=== PATIENT | female | born 1980 | race Caucasian/White ===

== ENCOUNTER 2017-02-01 11:46 | Inpatient (IN) | payer MEDICAID ==
--- NOTE | 2017-02-01 12:25 | ER Document Report ---
HPI - HPI Pain Level: 5 - REPRODUCTIVE Reproductive: DENIES: : - DERM Skin Color: Normal Past Medical History - Social History Family History: Reviewed & Not Pertinent Patient has suicidal ideation: No Patient has homicidal ideation: No - Past Medical History Cardiac Medical History: Reports: Hx Hypertension Pulmonary Medical History: Reports: Hx COPD Renal/ Medical History: Denies: Hx Peritoneal Dialysis Past Surgical History: Reports: Hx Section, Hx Cholecystectomy, Hx Tonsillectomy - Immunizations Hx Diphtheria, Pertussis, Tetanus Vaccination: Yes Vertical Provider Document - INFECTION CONTROL TRAVEL OUTSIDE OF THE [place] IN LAST 30 DAYS: No - RESPIRATORY O2 Sat by Pulse Oximetry: 100 Course - Vital Signs Vital signs: Temp Pulse Resp BP Pulse Ox 98.5 F 93 20 150/111 H 100 02/01/17 12:14 02/01/17 12:14 02/01/17 12:14 02/01/17 12:14 02/01/17 12:14 Discharge - Discharge Condition: Stable Instructions: Ice & Elevation ([facility]), Ankle Stirrup Splint ([facility]), Sprained Ankle ([facility]), Use of Crutches ([facility]) Additional Instructions: Rest, Ice, Compression, Elevation Use sling as directed Tylenol/ibuprofen as needed Light stretches daily Strength exercises as able Moist heat and massage may help F/u with your PCP in 2-3 days for a recheck Consider consult(s) with Orthopedics/physical therapy for ongoing/worsening symptoms Return to the ED with any worsening symptoms and/or development of fever, headache, chest pain, palpitations, syncope, shortness of breath, trouble breathing, abdominal pain, n/v/d, muscle weakness/paralysis, numbness/tingling, swelling, redness, or other worsening symptoms that are concerning to you. Forms: Elevated Blood Pressure Referrals: [facility] [Provider Group] - Follow up as needed
[2017-02-01] MEDS ORDERED: ONDANSETRON 4 MG TAB.RAPDIS PO ONE (12:36)
[2017-02-01] MEDS ORDERED: KETOROLAC TROMETHAMINE 60 MG/2 ML SDV IM ONE (12:36)
[2017-02-01] MEDS ORDERED: OXYCODONE-ACETAMINOPHEN 5-325 MG TABLET PO ONE (12:36)
--- NOTE | 2017-02-01 12:46 | ER Document Report ---
ED Extremity Problem, Lower - General Chief Complaint: Ankle Injury Stated Complaint: FALL/LEFT KNEE PAIN Time Seen by Provider: 02/01/17 12:25 Mode of Arrival: Wheelchair Information source: Patient Notes: 36-year-old female presents to ED for complaint of left knee pain. She states she was changing a light bulb around 2:00 this morning while cleaning in an empty house after the people had moved out. She states she was on a little short ladder and somehow the ladder tipped over and she went down landing on her right knee. She denies any loss of consciousness neck pain back pain. She states her pain is mainly in her left knee but sometimes it radiates up the leg and down the leg. She states that she tried to wait to see if she had to get seen by a doctor but the pain persisted so she came to the emergency room. TRAVEL OUTSIDE OF THE [place] IN LAST 30 DAYS: No - HPI Patient complains to provider of: Pain, Swelling Location: Knee - Left knee Occurred: This morning Where: Indoors - Changing a light bulb and a ladder Onset/Duration: Sudden, Persistent Quality of pain: Sharp, Throbbing Severity: Severe Pain Level: 5 Recent injury: Yes Associated symptoms: Unable to bear weight Exacerbated by: Hanging down, Movement, Walking Relieved by: Nothing - Related Data Allergies/Adverse Reactions: No Known Allergies Allergy (Verified 02/01/17 15:07) Home Medications: Current Home Medications Alprazolam [Xanax 0.5 mg Tablet] 0.5 mg PO Q8A 02/01/17 [History] Dextroamphetamine/Amphetamine [Dextroamp-Amphetamin 20 mg Tab] 20 mg PO Q8 02/01 [History] Past Medical History - General Information source: Patient - Social History Smoking Status: Current Every Day Smoker Cigarette use (# per day): Yes - 3-5 cigarettes a day Chew tobacco use (# tins/day): No Smoking Education Provided: Yes - Less than 2 minutes Frequency of alcohol use: Occasional Drug Abuse: None Occupation: no Lives with: Family Family History: Arthritis, CAD, COPD, CVA, DM, Hyperlipidemia, Hypertension, Malignancy Patient has suicidal ideation: No Patient has homicidal ideation: No - Past Medical History Cardiac Medical History: Reports: Hx Hypertension Pulmonary Medical History: Reports: Hx COPD EENT Medical History: Reports: None Neurological Medical History: Reports: None Endocrine Medical History: Reports: None Renal/ Medical History: Reports: None Malignancy Medical History: Reports: None GI Medical History: Reports: None Musculoskeltal Medical History: Reports None Skin Medical History: Reports Hx MRSA Psychiatric Medical History: Reports: Hx Anxiety, Hx Attention Deficit Hyperactivity Disorder Traumatic Medical History: Reports: None Infectious Medical History: Reports: None Past Surgical History: Reports: Hx Adenoidectomy, Hx Section, Hx Cholecystectomy, Hx Tonsillectomy - Immunizations Hx Diphtheria, Pertussis, Tetanus Vaccination: Yes Review of Systems - Review of Systems Constitutional: No symptoms reported EENT: No symptoms reported Cardiovascular: No symptoms reported Respiratory: No symptoms reported Gastrointestinal: No symptoms reported Genitourinary: No symptoms reported Female Genitourinary: No symptoms reported Musculoskeletal: Joint pain - left knee, Joint swelling, Muscle pain Skin: No symptoms reported Hematologic/Lymphatic: No symptoms reported Neurological/Psychological: No symptoms reported -: Yes All other systems reviewed and negative Physical Exam - Vital signs Vitals: Temp Pulse Resp BP Pulse Ox 98.5 F 93 20 150/111 H 100 02/01/17 12:14 02/01/17 12:14 02/01/17 12:14 02/01/17 12:14 02/01/17 12:14 Interpretation: Normal - General General appearance: Appears well, Alert - HEENT Head: Normocephalic, Atraumatic Eyes: Normal Pupils: PERRL - Respiratory Respiratory status: No respiratory distress Chest status: Nontender Breath sounds: Normal Chest palpation: Normal - Cardiovascular Rhythm: Regular Heart sounds: Normal auscultation Murmur: No - Abdominal Inspection: Normal Distension: No distension Bowel sounds: Normal Tenderness: Nontender Organomegaly: No organomegaly - Back Back: Normal, Nontender - Extremities General upper extremity: Normal inspection, Nontender, Normal color, Normal ROM , Normal temperature General lower extremity: Normal color, Normal temperature Knee: Tender, Joint effusion, Pain with ROM, Tender joint line, Unable to bear weight. No: Abrasion, Deformity, Dislocation, Drawer's test instability, Ecchymosis, Instability, Laxity with valgus stress, Laxity with varus stress, Popliteal fossa tender - Neurological Neuro grossly intact: Yes Cognition: Normal Orientation: AAOx4 [place] Coma Scale Eye Opening: Spontaneous [place] Coma Scale Verbal: Oriented [place] Coma Scale Motor: Obeys Commands [place] Coma Scale Total: 15 Speech: Normal Motor strength normal: LUE, RUE, LLE, RLE Sensory: Normal - Psychological Associated symptoms: Normal affect, Normal mood - Skin Skin Temperature: Warm Skin Moisture: Dry Skin Color: Normal Course - Re-evaluation Re-evalutation: 02/01/17 21:54 At [address] ng concerning the tibial plateau fracture to the left knee. He stated yes it was a fracture to the proximal tibia and that I would need to call orthopedics as this would need to go to surgery. At 1343 I placed a call to Dr. Rodriguez with the coal conveyor operator who stated that she left a message on his phone to call me. At 1418 I had not yet received a call and I called the coal conveyor operator again. She placed me through to Dr. joseph this time and I spoke to him telling him of the tibial plateau fracture. He asked me was not displaced and I told him that it was. He states he would need a CT of the knee and that he will look at the x-ray and CT when he got where he was going as he was driving when I spoke to him. At 1537 he had not yet called me and I placed another call. I told him that the CT had read that there was a comminuted fracture going to the articular joint. He stated that he would look at the CT and call me back. I wrote orders for the blood work for admission and IV with IV fluids. At 1635 he had not called me back yet so I called again at which time he told me to admit the patient to his services and that he would write orders. He stated he could not do surgery today as it was too much swelling that she can go ahead and eat today and to be n.p.o. after midnight. Patient was admitted to Dr. Rodriguez's services. Patient was treated with Percocet and Toradol when I first examined the patient. There was ice applied to her knee. She was sent for the x-rays. When I found that her knee was fractured she was treated with morphine IV before sending her to the CAT scan. - Vital Signs Vital signs: Temp Pulse Resp BP Pulse Ox 98.2 F 101 H 16 137/93 H 100 02/01/17 17:15 02/01/17 17:15 02/01/17 17:15 02/01/17 17:15 02/01/17 12:14 - Laboratory Result Diagrams: 02/01/17 14:20 02/01/17 14:20 Laboratory results interpreted by me: 02/01/17 02/01/17 14:20 14:20 Hgb 11.2 L Hct 33.1 L RDW 14.9 H Total Protein 6.0 L - Diagnostic Test Radiology reviewed: Image reviewed, Reports reviewed Discharge - Discharge Clinical Impression: comminuted proximal tibial plateau left Disposition: ADMITTED INPATIENT Admitting Provider: Dr Rodriguez
[2017-02-01] MEDS ORDERED: MORPHINE SULFATE 10 MG/ML INJ IV ONE (14:07)
[2017-02-01] MEDS ORDERED: NORMAL SALINE 1000 ML 1,000 ML IV ONE (14:08)
[2017-02-01] MEDS ORDERED: DIPHENHYDRAMINE HCL 50 MG/ML VIAL IV ONE (14:12)
[2017-02-01] MEDS: NORMAL SALINE 1000 ML 1,000 ML IV PRN (14:20)
[2017-02-01 14:45] LABS: ABSOLUTE EOSINOPHILS # (AUTO) 0.2 10^3/uL (0.0-0.6); ABSOLUTE LYMPHOCYTES (AUTO) 2.2 10^3/uL (0.5-4.7); ABSOLUTE MONOCYTES (AUTO) 0.9 10^3/uL (0.1-1.4); ABSOLUTE NEUT (AUTO) 5.1 10^3/uL (1.7-8.2); BASOPHILS % (AUTO) 0.4 % (0-2); EOSINOPHILS % (AUTO) 2.4 % (0-6); HEMATOCRIT 33.1 % (36.0-47.0); HEMOGLOBIN 11.2 g/dL (12.0-15.5); HGB HCT DIFFERENCE 0.5; LYMPHOCYTES % (AUTO) 26.6 % (13-45); MEAN CORPUSCULAR HGB CONC 33.9 g/dL (32.0-36.0); MEAN CORPUSCULAR VOLUME 89 fl (80-97); MONOCYTES % (AUTO) 10.1 % (3-13); RED BLOOD COUNT 3.73 10^6/uL (3.72-5.28); RED CELL DISTRIBUTION WIDTH 14.9 % (11.5-14.0); SEGMENTED NEUTROPHILS % (AUTO) 60.5 % (42-78); WHITE BLOOD COUNT 8.4 10^3/uL (4.0-10.5)
--- NOTE | 2017-02-01 14:45 | RADIOLOGY REPORT (SQ) ---
EXAM DESCRIPTION: KNEE LEFT 3 VIEWS; FEMUR LEFT; TIBIA FIBULA LEFT COMPLETED DATE/TIME: 02/01/2017 1:48 pm REASON FOR STUDY: pain injury fall; Fall landed on knee states pain radiates up and do COMPARISON: None. NUMBER OF VIEWS: 7 views TECHNIQUE: AP lateral left tibia fibula, AP lateral and sunrise left knee, AP and lateral left femur . LIMITATIONS: None. FINDINGS: Comminuted fracture central posterior tibial plateau. Intra-articular bone fragments. Fi bular head and patella intact. Joint effusion. IMPRESSION: Fracture of the tibial plateau. TECHNICAL DOCUMENTATION: JOB ID: [id number] [employer]- All Rights Reserved
--- NOTE | 2017-02-01 14:45 | RADIOLOGY REPORT (SQ) ---
EXAM DESCRIPTION: KNEE LEFT 3 VIEWS; FEMUR LEFT; TIBIA FIBULA LEFT COMPLETED DATE/TIME: 02/01/2017 1:48 pm REASON FOR STUDY: pain injury fall; Fall landed on knee states pain radiates up and do COMPARISON: None. NUMBER OF VIEWS: 7 views TECHNIQUE: AP lateral left tibia fibula, AP lateral and sunrise left knee, AP and lateral left femur . LIMITATIONS: None. FINDINGS: Comminuted fracture central posterior tibial plateau. Intra-articular bone fragments. Fi bular head and patella intact. Joint effusion. IMPRESSION: Fracture of the tibial plateau. TECHNICAL DOCUMENTATION: JOB ID: [id number] [email or web address]- All Rights Reserved
--- NOTE | 2017-02-01 14:45 | RADIOLOGY REPORT (SQ) ---
EXAM DESCRIPTION: KNEE LEFT 3 VIEWS; FEMUR LEFT; TIBIA FIBULA LEFT COMPLETED DATE/TIME: 02/01/2017 1:48 pm REASON FOR STUDY: pain injury fall; Fall landed on knee states pain radiates up and do COMPARISON: None. NUMBER OF VIEWS: 7 views TECHNIQUE: AP lateral left tibia fibula, AP lateral and sunrise left knee, AP and lateral left femur . LIMITATIONS: None. FINDINGS: Comminuted fracture central posterior tibial plateau. Intra-articular bone fragments. Fi bular head and patella intact. Joint effusion. IMPRESSION: Fracture of the tibial plateau. TECHNICAL DOCUMENTATION: JOB ID: [id number] [employer]- All Rights Reserved
[2017-02-01 15:17] LABS: ALANINE AMINOTRANSFERASE 36 U/L (9-52); ALBUMIN 3.6 g/dL (3.5-5.0); ALKALINE PHOSPHATASE 87 U/L (38-126); ANION GAP 10 (5-19); ASPARTATE AMINO TRANSFERASE 21 U/L (14-36); BILIRUBIN,DIRECT 0.3 mg/dL (0.0-0.4); BILIRUBIN,TOTAL 0.3 mg/dL (0.2-1.3); BLOOD UREA NITROGEN 13 mg/dL (7-20); CARBON DIOXIDE 23 mmol/L (22-30); CHLORIDE 107 mmol/L (98-107); CREATININE RESULT 0.62 mg/dL (0.52-1.25); GLUCOSE 97 mg/dL (75-110); POTASSIUM 3.8 mmol/L (3.6-5.0); SODIUM 139.5 mmol/L (137-145)
--- NOTE | 2017-02-01 15:25 | RADIOLOGY REPORT (SQ) ---
EXAM DESCRIPTION: CT LT LOWER EXTREMITY WITHOUT COMPLETED DATE/TIME: 02/01/2017 3:06 pm REASON FOR STUDY: factured tibia Dr Rodriguez request COMPARISON: None. TECHNIQUE: Axial imaging performed through the left knee with reformatted coronal and sagittal imagi ng windowed for bone and soft tissues. Images saved to PACS. 3D IMAGING: Were 3D images as MIP, SSD, or volume rendering performed at the work station? No. All CT scanners at this facility use dose modulation, iterative reconstruction, and/or weight based d osing when appropriate to reduce radiation dose to as low as reasonably achievable (ALARA). [facility]: Dose Right [facility]: CareDose [facility]: Dose Right [facility]: Teradose 4D [facility]: [employer] LIMITATIONS: None. RADIATION DOSE: Up-to-date CT equipment and radiation dose reduction techniques were employed. CTDIv ol: 4.1 mGy. DLP: 117 mGy-cm. mGy. FINDINGS: SOFT TISSUES: Small joint effusion and mild soft tissue edema. BONES: Comminuted fracture involving the proximal tibia. There is involvement of both the medial and lateral tibial plateaus with fracture lines involving the articular surfaces both medially and later ally. There is mild displacement of with offset of the articular surfaces. There is involvement of the tibial spines. MINERALIZATION: Normal. OTHER: No other significant finding. IMPRESSION: Comminuted fracture involving the proximal tibia involving the articular surface both me dially and laterally. TECHNICAL DOCUMENTATION: JOB ID: [id number] Quality ID # [id number]: Final reports with documentation of one or more dose reduction techniques (e.g., Au tomated exposure control, adjustment of the mA and/or kV according to patient size, use of iterative reconstruction technique) 2010 [employer]- All Rights Reserved
[2017-02-01] MEDS ORDERED: OXYCODONE-ACETAMINOPHEN 5-325 MG TABLET PO PRN (20:13)
--- NOTE | 2017-02-01 21:08 | PDOC H&P ---
History of Present Illness Admission Date/PCP: 02/01/17 16:55 GIULIANA LOAIZA MD Patient complains of: Left leg pain and swelling History of Present Illness: SUSAN MACEDO is a 36 year old overweight female status post fall from a 4 foot ladder. Patient is doing some home renovations when she had the fall. She did not have any loss of consciousness or any other extremity injury. She and inability to weight-bear in the left lower extremity with significant pain with attempted weightbearing and range of motion. Patient was brought to [facility] where x-rays determined that the patient had a tibial plateau fracture. She denies any numbness or tingling or paresthesias. Complains of pain to be 4 out of 5. States the pain is located around the anterior and lateral aspect of her knee. No previous orthopedic injury to the extremity or previous surgery either. Past Medical History Cardiac Medical History: Reports: Hypertension Pulmonary Medical History: Reports: Chronic Obstructive Pulmonary Disease (COPD) EENT Medical History: Reports: None Neurological Medical History: Reports: None Endocrine Medical History: Reports: None Renal/ Medical History: Reports: None Malignancy Medical History: Reports: None GI Medical History: Reports: None Musculoskeltal Medical History: Reports: None Psychiatric Medical History: Reports: Attention Deficit Hyperactivity Disorder Traumatic Medical History: Reports: None Infectious Medical History: Reports: None Past Surgical History Past Surgical History: Reports: Adenoidectomy, Section, Cholecystectomy , Tonsillectomy Social History Lives with: Family Smoking Status: Current Every Day Smoker Family History Family History: Arthritis, CAD, COPD, CVA, DM, Hyperlipidemia, Hypertension, Malignancy Parental Family History Reviewed: No Children Family History Reviewed: No Sibling(s) Family History Reviewed.: No Medication/Allergy Home Medications: Alprazolam [Xanax 0.5 mg Tablet] 0.5 mg PO Q8A 02/01/17 Dextroamphetamine/Amphetamine [Dextroamp-Amphetamin 20 mg Tab] 20 mg PO Q8 02/01 Allergies/Adverse Reactions: No Known Allergies Allergy (Verified 02/01/17 15:07) Review of Systems All systems: reviewed and no additional remarkable complaints except as stated Physical Exam Vital Signs: Temp Pulse Resp BP Pulse Ox 36.8 C 101 H 16 137/93 H 100 02/01/17 17:15 02/01/17 17:15 02/01/17 17:15 02/01/17 17:15 02/01/17 12:14 General appearance: PRESENT: no acute distress Head exam: PRESENT: atraumatic, normocephalic Eye exam: PRESENT: EOMI, PERRLA. ABSENT: nystagmus, periorbital swelling Ear exam: PRESENT: normal external ear exam. ABSENT: bleeding Neck exam: PRESENT: full ROM. ABSENT: lymphadenopathy, tenderness, thyromegaly , tracheal deviation Respiratory exam: PRESENT: symmetrical, unlabored. ABSENT: accessory muscle use , chest wall tenderness, tachypnea Cardiovascular exam: PRESENT: RRR Pulses: PRESENT: normal radial pulses, normal dorsalis pedis pul Vascular exam: PRESENT: normal capillary refill GI/Abdominal exam: PRESENT: soft. ABSENT: distended, tenderness Neurological exam: PRESENT: alert, awake, oriented to person, oriented to place , oriented to time, oriented to situation Psychiatric exam: PRESENT: appropriate affect, normal mood Skin exam: PRESENT: intact, normal color. ABSENT: abrasion, erythema, rash Adult Front & Back Image: 1 - Swelling and tenderness to palpation the left lower extremity. No ecchymosis. Soft compartments. Decreased range of motion as expected second the pain. No obvious deformity of the extremity. Neurovascular intact distally with motor 5 out of 5 distally. Good capillary refill and palpable dorsalis pedis pulse. Results Impressions: Knee X-Ray 02/01/17 12:39 IMPRESSION: Fracture of the tibial plateau. Femur X-Ray 02/01/17 12:46 IMPRESSION: Fracture of the tibial plateau. Tibia/Fibula X-Ray 02/01/17 12:46 IMPRESSION: Fracture of the tibial plateau. Lower Extremity CT 02/01/17 14:19 IMPRESSION: Comminuted fracture involving the proximal tibia involving the articular surface both medially and laterally. Status: Image reviewed by me Assessment & Plan - Diagnosis (1) Tibial plateau fracture, left Qualifiers: Encounter type: initial encounter Fracture type: closed Qualified Code(s) : S82.142A - Displaced bicondylar fracture of left tibia, initial encounter for closed fracture Is this a current diagnosis for this admission?: Yes Plan: 36-year-old overweight female who status post fall off of a 4 foot ladder suffered a comminuted tibial plateau fracture on the left. Discussed the operative versus nonoperative treatment of the fracture and the risk and benefits of proceeding with open reduction internal fixation. Patient has agreed to proceed with ORIF of a left tibial plateau fracture. In the meantime patient will be placed in a knee immobilizer and extremity elevated with ice. Pain control and n.p.o. after midnight. We will start IV fluids and plan to take her to the operating room tomorrow if swelling does not increase. We will monitor swelling and if any concerns will check for compartment syndrome. At the moment swelling is unimpressive therefore a have optimism that we will probably proceed tomorrow.
[2017-02-01] MEDS: ONDANSETRON HCL INJ/PF 4 MG/2 ML SDV IV PRN (21:28)
[2017-02-01] MEDS: MORPHINE SULFATE 10 MG/ML INJ IV PRN (21:28)
--- NOTE | 2017-02-01 21:34 | EKG REPORT ---
SEVERITY:- OTHERWISE NORMAL ECG - SINUS RHYTHM LOW VOLTAGE IN FRONTAL LEADS : Confirmed by: Prabhu Lund 01-Feb-2017 21:33:44
[2017-02-02] MEDS: MORPHINE SULFATE 10 MG/ML INJ IV PRN ×6 (00:45→16:59)
[2017-02-02] MEDS: ALPRAZOLAM 0.5 MG TABLET PO PRN ×3 (00:45→21:43)
[2017-02-02] MEDS: NORMAL SALINE 1000 ML 1,000 ML IV PRN (09:13)
[2017-02-02] MEDS: ONDANSETRON HCL INJ/PF 4 MG/2 ML SDV IV PRN ×2 (09:20→16:59)
[2017-02-02] MEDS: OXYCODONE-ACETAMINOPHEN 5-325 MG TABLET PO PRN ×3 (11:56→23:00)
[2017-02-02 17:58] LABS: APPEARANCE,URINE CLEAR; BILIRUBIN,URINE NEGATIVE (NEGATIVE); GLUCOSE, URINE NEGATIVE (NEGATIVE); KETONES,URINE NEGATIVE (NEGATIVE); LEUKOCYTE ESTERASE,URINE NEGATIVE (NEGATIVE); NITRITE,URINE NEGATIVE (NEGATIVE); PROTEIN,URINE NEGATIVE (NEGATIVE); URINE SPECIFIC GRAVITY 1.028
[2017-02-03] MEDS: OXYCODONE-ACETAMINOPHEN 5-325 MG TABLET PO PRN ×2 (03:25→20:37)
[2017-02-03] MEDS: MORPHINE SULFATE 10 MG/ML INJ IV PRN (07:36)
[2017-02-03] MEDS ORDERED: VECURONIUM BROMIDE INJ 10 MG VIAL IV ONE (08:55)
[2017-02-03] MEDS ORDERED: ONDANSETRON HCL INJ/PF 4 MG/2 ML SDV ONE (08:55)
[2017-02-03] MEDS ORDERED: SUCCINYLCHOLINE CHLORIDE INJ 200 MG/10 ML VIAL ONE (08:55)
[2017-02-03] MEDS ORDERED: ETOMIDATE INJ/PF 20 MG/10 ML SDV IV ONE (08:55)
[2017-02-03] MEDS ORDERED: LIDOCAINE 2% INJ-PF (20 MG/ML) 10 ML AMPUL ONE (08:55)
[2017-02-03] MEDS ORDERED: GLYCOPYRROLATE INJ 0.4 MG/2 ML VIAL ONE (08:55)
[2017-02-03] MEDS ORDERED: DEXAMETHASONE SOD PHOSPHATE INJ 4 MG/1 ML VIAL ONE (08:55)
[2017-02-03] MEDS ORDERED: NEOSTIGMINE METHYLSULFATE 10 MG/10 ML VIAL ONE (08:55)
[2017-02-03] MEDS ORDERED: FENTANYL CITRATE INJ/PF 250 MCG/5 ML AMPULE ONE (09:50)
[2017-02-03] MEDS ORDERED: PROPOFOL INJ 200 MG/20 ML VIAL IV ONE (09:50)
[2017-02-03] MEDS ORDERED: MIDAZOLAM 2 MG/2 ML INJ ONE (09:50)
[2017-02-03] MEDS ORDERED: ACETAMINOPHEN 100 ML IV ONE (09:51)
[2017-02-03] MEDS ORDERED: IBUPROFEN INJ 800 MG/8 ML VIAL IV ONE (09:51)
[2017-02-03] MEDS ORDERED: HYDROMORPHONE HCL INJ/PF 2 MG/ML AMPULE ONE ×3 (09:51→12:30)
[2017-02-03] MEDS ORDERED: CEFAZOLIN INJ 1 GM VIAL ONE (10:38)
[2017-02-03] MEDS ORDERED: MEPERIDINE HCL/PF INJ 25 MG/1 ML DISP.SYRIN IV PRN (10:51)
[2017-02-03] MEDS ORDERED: PROMETHAZINE HCL INJ 25 MG/1 ML VIAL IV PRN (10:51)
[2017-02-03] MEDS ORDERED: FENTANYL CITRATE INJ/PF 100 MCG/2 ML AMPUL IV PRN ×3 (10:51)
[2017-02-03] MEDS ORDERED: DIPHENHYDRAMINE HCL 50 MG/ML VIAL IV PRN (10:51)
[2017-02-03] MEDS ORDERED: MORPHINE SULFATE 10 MG/ML INJ IV PRN (10:51)
[2017-02-03] MEDS ORDERED: BUPIVACAINE HCL 0.5 % INJ/PF 30 ML SDV ONE (12:26)
[2017-02-03] MEDS ORDERED: PROMETHAZINE HCL INJ 25 MG/1 ML VIAL ONE (12:30)
[2017-02-03] MEDS ORDERED: HYDROMORPHONE HCL INJ/PF 2 MG/ML AMPULE IV ONE (14:00)
--- NOTE | 2017-02-03 14:52 | RADIOLOGY REPORT (SQ) ---
EXAM DESCRIPTION: NO CHG FLUORO; KNEE LEFT 2 VIEWS COMPLETED DATE/TIME: 02/03/2017 2:20 pm REASON FOR STUDY: ORIF LT KNEE ASSISTED WITH FLUORO IN OR COMPARISON: None. FLUOROSCOPY TIME: 1.3 minutes 5 images saved to PACS. TECHNIQUE: Intra-operative images acquired during surgical procedure to evaluate progress. NUMBER OF IMAGES: 5 LIMITATIONS: None. FINDINGS: Plate and screw fixation of tibial plateau fracture. Alignment is anatomic. IMPRESSION: IMAGE(S) OBTAINED DURING PROCEDURE. COMMENT: Quality ID [id number]: Final reports for procedures using fluoroscopy that document radiation exp osure indices, or exposure time and number of fluorographic images (if radiation exposure indices are not available) Please consult full operative report of the attending physician for description of the procedure. TECHNICAL DOCUMENTATION: JOB ID: [id number] [employer]- All Rights Reserved
--- NOTE | 2017-02-03 14:52 | RADIOLOGY REPORT (SQ) ---
EXAM DESCRIPTION: NO CHG FLUORO; KNEE LEFT 2 VIEWS COMPLETED DATE/TIME: 02/03/2017 2:20 pm REASON FOR STUDY: ORIF LT KNEE ASSISTED WITH FLUORO IN OR COMPARISON: None. FLUOROSCOPY TIME: 1.3 minutes 5 images saved to PACS. TECHNIQUE: Intra-operative images acquired during surgical procedure to evaluate progress. NUMBER OF IMAGES: 5 LIMITATIONS: None. FINDINGS: Plate and screw fixation of tibial plateau fracture. Alignment is anatomic. IMPRESSION: IMAGE(S) OBTAINED DURING PROCEDURE. COMMENT: Quality ID [id number]: Final reports for procedures using fluoroscopy that document radiation exp osure indices, or exposure time and number of fluorographic images (if radiation exposure indices are not available) Please consult full operative report of the attending physician for description of the procedure. TECHNICAL DOCUMENTATION: JOB ID: [id number] [employer]- All Rights Reserved
[2017-02-03] MEDS: RINGERS SOLUTION,LACTATED 1,000 ML IV PRN (16:08)
[2017-02-03] MEDS ORDERED: ENOXAPARIN SODIUM INJ 40 MG/0.4 ML DISP.SYRIN SUBCUT ONE (17:15)
[2017-02-03] MEDS: CEFAZOLIN 2 GM/D5W RTU 2 GM/50 ML RTUPB IV SCH (17:27)
[2017-02-03] MEDS: ALPRAZOLAM 0.5 MG TABLET PO PRN (20:37)
--- NOTE | 2017-02-03 21:18 | RADIOLOGY REPORT (SQ) ---
EXAM DESCRIPTION: KNEE LEFT 2 VIEWS COMPLETED DATE/TIME: 02/03/2017 9:01 pm REASON FOR STUDY: Post knee surgery COMPARISON: Intraoperative and preoperative imaging from today and 02/01/2017. NUMBER OF VIEWS: Two views left knee. LIMITATIONS: None. FINDINGS: Status post open reduction internal fixation of proximal tibial fracture with anatomic ali gnment. Minimal articular surface irregularity posteriorly and centrally involving the medial platea u but no depression or significant articular surface step-off. OTHER: No other significant finding. IMPRESSION: Postoperative images as above. TECHNICAL DOCUMENTATION: JOB ID: [id number]
[2017-02-04] MEDS: MORPHINE SULFATE 10 MG/ML INJ IV PRN ×2 (01:14→08:03)
[2017-02-04] MEDS: ONDANSETRON HCL INJ/PF 4 MG/2 ML SDV IV PRN ×2 (01:14→08:08)
[2017-02-04] MEDS: CEFAZOLIN 2 GM/D5W RTU 2 GM/50 ML RTUPB IV SCH (01:14)
[2017-02-04 06:21] LABS: HEMATOCRIT 27.5 % (36.0-47.0); HEMOGLOBIN 9.5 g/dL (12.0-15.5); MEAN CORPUSCULAR HEMOGLOBIN 30.8 pg (27.0-33.4); MEAN CORPUSCULAR HGB CONC 34.4 g/dL (32.0-36.0); MEAN CORPUSCULAR VOLUME 90 fl (80-97); RED BLOOD COUNT 3.07 10^6/uL (3.72-5.28); RED CELL DISTRIBUTION WIDTH 14.8 % (11.5-14.0); WHITE BLOOD COUNT 8.3 10^3/uL (4.0-10.5)
[2017-02-04 06:35] LABS: ANION GAP 8 (5-19); BLOOD UREA NITROGEN 10 mg/dL (7-20); CALCIUM 8.5 mg/dL (8.4-10.2); CARBON DIOXIDE 25 mmol/L (22-30); CHLORIDE 106 mmol/L (98-107); CREATININE RESULT 0.58 mg/dL (0.52-1.25); GLUCOSE 133 mg/dL (75-110); POTASSIUM 4.1 mmol/L (3.6-5.0); SODIUM 138.6 mmol/L (137-145)
[2017-02-04] MEDS: ENOXAPARIN SODIUM INJ 40 MG/0.4 ML DISP.SYRIN SUBCUT SCH (08:03)
[2017-02-04] MEDS: ALPRAZOLAM 0.5 MG TABLET PO PRN ×2 (08:03→22:19)
[2017-02-04] MEDS: OXYCODONE-ACETAMINOPHEN 5-325 MG TABLET PO PRN ×3 (12:07→22:18)
--- NOTE | 2017-02-04 15:57 | Operative Report ---
Operative Report DATE OF SURGERY: 02/03/17 PREOPERATIVE DIAGNOSIS: left comminuted mildly displaced tibial plateau fracture POSTOPERATIVE DIAGNOSIS: Same OPERATION: ORIF of left tibial plateau fracture SURGEON: ZULMA SARABIA ANESTHESIA: GA TISSUE REMOVED OR ALTERED: None COMPLICATIONS: None ESTIMATED BLOOD LOSS: 30 mL INTRAOPERATIVE FINDINGS: As above PROCEDURE: After receiving preoperative antibiotics patient was brought to the operating room where she was successfully induced and intubated in a supine position. Thigh tourniquet was applied to the left lower extremity and the left lower extremity was prepped and draped in a normal sterile surgical fashion. Esmarch was used to exsanguinate the extremity and the tourniquet was inflated at 320 mmHg. This was done after timeout was done identifying the left knee as the correct site. A standard hockey stick incision was done and the blade was used then to cut the fascial tissue over the anterior tibialis reflecting it off of the tibial shaft and metaphysis. I was just to the edge of the patellar tendon and then curved it to the joint line where we went sub-meniscal and able to visualize the lateral articular surface and anterior surface of the tibial spine. I was able to palpate the anterior spine fracture. Hematoma was suctioned. A window was done using a 6 5 drill bit. With this I used a bone tamp to elevate the lateral joint space. Pictures were taken showing the elevation and reduction. The anterior tibial spine reduced with extension and mildly displaced with flexion. I did a longitudinal split of the patella tendon to attempt to place a stitch and hold that fragment down but was unsuccessful. I turned my attention to placing the plate and capturing the posterior medial fragment. Once I applied the plate I use pins and then proceeded to drill and place a compression screw to secure the plate onto the tibia. The screw went parallel with the joint space. Proper length was done while C-arm was used to confirm drilling, placement, length of drills and final screws. The first second screw used was locking screw anteriorly. The third final scaffolding screw was a compression screw that was directed posteriorly capturing the fragment. I first placed along screws I had exchanged for a smaller screw but pictures show catching of the posterior medial fragment. AP and lateral x-rays were taken to confirm placement of the plate and screws and fixation. Also satisfied with the scaffolding screws to hold the joint surface and reduction I then proceeded to clamp the plate to the tibia and place compression screw to suction the plate onto the tibial shaft. Second screw was placed as a locking screw to secure the plate further. I then placed to kickstand screw by drilling and measuring and applying the appropriate screw. AP and lateral x-rays were taken to see my final fixation and reduction. I closed the split of the tendon with 1 Vicryl and approximated the fascial tissue of the anterior tibialis with 1 Vicryl. Subcutaneous tissue was closed with 0 Vicryl and neno for skin. Xeroform was applied to incision followed by 4 x 4 dressing, abdominal pad and soft roll. Extremity was overwrapped with an Philippe bandage and the tourniquet was deflated at 106 minutes and the drapes were removed. Patient was then placed in a knee immobilizer and then transferred to her bed and extubated and sent to PACU in a stable condition
--- NOTE | 2017-02-04 17:40 | PDOC PROGRESS REPORT ---
Subjective Progress Note for:: 02/04/17 Subjective:: Patient still taking IV morphine for breakthrough pain. Asking for commode and walker. Bay was removed this morning. Physical Exam Vital Signs: Temp Pulse Resp BP Pulse Ox 36.9 C 128 H 16 127/69 H 100 02/04/17 11:55 02/04/17 11:55 02/04/17 11:55 02/04/17 11:55 02/04/17 11:55 Intake & Output 02/03/17 02/04/17 02/05/17 06:59 06:59 06:59 Intake Total 4325 4070 2360 Output Total 3740 1620 800 Balance 585 2450 1560 General appearance: PRESENT: no acute distress Adult Front & Back Image: 1 - Knee immobilizer is on. Dressing is dry clean and intact. Patient has a soft calf with no redness or tenderness. She is neurovascular intact distally with good capillary refill and sensation to light touch. Results Laboratory Results: 02/04/17 05:22 02/04/17 05:22 02/04/17 02/04/17 05:22 05:22 WBC 8.3 RBC 3.07 L Hgb 9.5 L Hct 27.5 L MCV 90 MCH 30.8 MCHC 34.4 RDW 14.8 H Plt Count 198 Sodium 138.6 Potassium 4.1 Chloride 106 Carbon Dioxide 25 Anion Gap 8 BUN 10 Creatinine 0.58 Est GFR ( Amer) > 60 Est GFR (Non-Af Amer) > 60 Glucose 133 H Calcium 8.5 Impressions: Femur X-Ray 02/01/17 12:46 IMPRESSION: Fracture of the tibial plateau. Tibia/Fibula X-Ray 02/01/17 12:46 IMPRESSION: Fracture of the tibial plateau. Lower Extremity CT 02/01/17 14:19 IMPRESSION: Comminuted fracture involving the proximal tibia involving the articular surface both medially and laterally. Fluoroscopy 02/03/17 00:00 IMPRESSION: IMAGE(S) OBTAINED DURING PROCEDURE. Knee X-Ray 02/03/17 20:00 IMPRESSION: Postoperative images as above. Status: Image reviewed by me Assessment & Plan - Diagnosis (1) Tibial plateau fracture, left Qualifiers: Encounter type: initial encounter Fracture type: closed Qualified Code(s) : S82.142A - Displaced bicondylar fracture of left tibia, initial encounter for closed fracture Is this a current diagnosis for this admission?: Yes - Plan Summary Plan Summary: 36-year-old overweight female status post ORIF of her left tibial plateau fracture. Patient agreed to wean off of the morphine so I can discharge her on p.o. Percocet, Zofran. Continue working with physical therapy and instructed to be nonweightbearing with knee immobilizer on at all times.
[2017-02-04] MEDS ORDERED: DOCUSATE SODIUM 100 MG/10 ML UDC PO SCH (22:00)
[2017-02-05] MEDS: OXYCODONE-ACETAMINOPHEN 5-325 MG TABLET PO PRN ×4 (03:18→16:12)
[2017-02-05] MEDS: ONDANSETRON HCL INJ/PF 4 MG/2 ML SDV IV PRN (03:19)
[2017-02-05 05:10] LABS: HEMATOCRIT 26.2 % (36.0-47.0); HEMOGLOBIN 8.9 g/dL (12.0-15.5); HGB HCT DIFFERENCE 0.5; MEAN CORPUSCULAR HEMOGLOBIN 30.2 pg (27.0-33.4); MEAN CORPUSCULAR HGB CONC 33.9 g/dL (32.0-36.0); MEAN CORPUSCULAR VOLUME 89 fl (80-97); RED BLOOD COUNT 2.94 10^6/uL (3.72-5.28); RED CELL DISTRIBUTION WIDTH 15.5 % (11.5-14.0); WHITE BLOOD COUNT 4.9 10^3/uL (4.0-10.5)
[2017-02-05 05:25] LABS: BLOOD UREA NITROGEN 11 mg/dL (7-20); CALCIUM 8.4 mg/dL (8.4-10.2); CARBON DIOXIDE 27 mmol/L (22-30); CREATININE RESULT 0.58 mg/dL (0.52-1.25); GLUCOSE 89 mg/dL (75-110); POTASSIUM 3.9 mmol/L (3.6-5.0)
[2017-02-05 05:35] LABS: CHLORIDE 107 mmol/L (98-107)
[2017-02-05 05:42] LABS: ANION GAP 5 (5-19); SODIUM 138.8 mmol/L (137-145)
[2017-02-05] MEDS: RINGERS SOLUTION,LACTATED 1,000 ML IV PRN (07:50)
[2017-02-05] MEDS: ENOXAPARIN SODIUM INJ 40 MG/0.4 ML DISP.SYRIN SUBCUT SCH (09:22)
[2017-02-05] MEDS ORDERED: DOCUSATE SODIUM 100 MG CAPSULE PO SCH (10:00)
[2017-02-05] MEDS: ALPRAZOLAM 0.5 MG TABLET PO PRN (11:59)
[2017-02-05 13:20] VITALS: BP 137/83
== END 2017-02-05 18:20 | disposition home or self-care (01) | DRG 494 ==
LOC: ER 11:46 → UNDOADMIN 16:55 → EH 16:55 → 5 18:54 → EH 20:22 → 5 20:22
PROVIDERS: ADMIT Orthopaedic Surgery; ATTEND Orthopaedic Surgery
PROC: 0QSH04Z Reposition Left Tibia with Internal Fixation Device, Open Approach (ICD-10-PCS; principal; 2017-02-03 10:30)
DX: S82.142A Displaced bicondylar fracture of left tibia, initial encounter for closed fracture (principal); I10 Essential (primary) hypertension; J44.9 Chronic obstructive pulmonary disease, unspecified; F90.9 Attention-deficit hyperactivity disorder, unspecified type; W11.XXXA Fall on and from ladder, initial encounter; Y93.E9 Activity, other interior property and clothing maintenance; F17.210 Nicotine dependence, cigarettes, uncomplicated; Z68.35 Body mass index [BMI] 35.0-35.9, adult; E66.3 Overweight; F41.9 Anxiety disorder, unspecified; Y92.009 Unspecified place in unspecified non-institutional (private) residence as the place of occurrence of the external cause; Z90.49 Acquired absence of other specified parts of digestive tract; Z90.89 Acquired absence of other organs; Z82.49 Family history of ischemic heart disease and other diseases of the circulatory system; Z82.3 Family history of stroke; Z80.9 Family history of malignant neoplasm, unspecified; Z82.5 Family history of asthma and other chronic lower respiratory diseases
CPT/HCPCS: 01392; 36415; 80048; 80053; 81001; 84703; 85025; 85027; 93005; 93010; 96372; 96374; 96375; 99285; J0131; J0330; J0690; J1100; J1170; J1200; J1650; J1741; J1885; J2250; J2270; J2405; J2550; J2704; J3010; J3490; J7030; J7120; L1830; S0119

== ENCOUNTER 2017-02-28 19:22 | Emergency (ER) | payer MEDICAID ==
--- NOTE | 2017-02-28 21:32 | ER Document Report ---
ED Medical Screen (RME) - General Chief Complaint: Fall Stated Complaint: FALL Time Seen by Provider: 02/28/17 21:23 Notes: 36-year-old female, chief complaint of pain in her left leg, she is 3 weeks postop ORIF procedure on the knee by Dr. Rodriguez, she states she fell 3 times on the leg last night. She states she simply tripped or lost her balance, she denies dizziness or passing out. She denies head injury or back pain. She denies other injuries other than mild soreness in her arms. TRAVEL OUTSIDE OF THE [place] IN LAST 30 DAYS: No - Related Data Allergies/Adverse Reactions: No Known Allergies Allergy (Verified 02/01/17 15:07) Past Medical History - Past Medical History Cardiac Medical History: Reports: Hx Hypertension Pulmonary Medical History: Reports: Hx COPD Renal/ Medical History: Denies: Hx Peritoneal Dialysis Skin Medical History: Reports Hx MRSA Psychiatric Medical History: Reports: Hx Anxiety, Hx Attention Deficit Hyperactivity Disorder Past Surgical History: Reports: Hx Adenoidectomy, Hx Section, Hx Cholecystectomy, Hx Tonsillectomy - Immunizations Hx Diphtheria, Pertussis, Tetanus Vaccination: Yes Physical Exam - Vital signs Vitals: Temp Pulse Resp BP Pulse Ox 98.6 F 110 H 16 132/91 H 98 02/28/17 19:34 02/28/17 19:34 02/28/17 19:34 02/28/17 19:34 02/28/17 19:34 - Extremities General lower extremity: Other - Well-healed wound over the anterior aspect of the knee status post ORIF, area is generally warm and tender extending to the proximal and mid tibia, normal distal neurovascular exam Course - Vital Signs Vital signs: Temp Pulse Resp BP Pulse Ox 98.6 F 110 H 16 132/91 H 98 02/28/17 19:34 02/28/17 19:34 02/28/17 19:34 02/28/17 19:34 02/28/17 19:34
--- NOTE | 2017-02-28 22:34 | RADIOLOGY REPORT (SQ) ---
EXAM DESCRIPTION: TIBIA FIBULA LEFT COMPLETED DATE/TIME: 02/28/2017 10:20 pm REASON FOR STUDY: fall on leg, post op, pain COMPARISON: 02/03/2017 NUMBER OF VIEWS: Two views. TECHNIQUE: Two radiographic images acquired of the left tibia and fibula to include the knee and ank le in at least one projection. LIMITATIONS: None. FINDINGS: MINERALIZATION: Normal. BONES: No acute fracture or dislocation. Mild interval healing of the proximal tibial plateau fractu re. Intact hardware. SOFT TISSUES: Mild swelling . OTHER: No other significant finding. IMPRESSION: No acute fracture or dislocation. Mild interval healing of the proximal tibial plateau fracture. Intact hardware. TECHNICAL DOCUMENTATION: JOB ID: [id number] [employer]- All Rights Reserved
--- NOTE | 2017-02-28 22:35 | RADIOLOGY REPORT (SQ) ---
EXAM DESCRIPTION: KNEE LEFT 4 VIEW COMPLETED DATE/TIME: 02/28/2017 10:20 pm REASON FOR STUDY: fall on leg, post op COMPARISON: 02/03/2017 NUMBER OF VIEWS: Four views. TECHNIQUE: AP, lateral, and both oblique radiographic images acquired of the left knee. LIMITATIONS: None. FINDINGS: MINERALIZATION: Normal. BONES: No acute fracture or dislocation. Mild interval healing in the medial tibial plateau fracture . Intact hardware. JOINT: Small effusion. SOFT TISSUES: Mild soft tissue swelling. OTHER: No other significant finding. IMPRESSION: No acute fracture or dislocation. Mild interval healing in the medial tibial plateau fr acture. Intact hardware. TECHNICAL DOCUMENTATION: JOB ID: [id number] [employer]- All Rights Reserved
[2017-02-28] MEDS ORDERED: ONDANSETRON 4 MG TAB.RAPDIS PO ONE (23:29)
[2017-02-28] MEDS ORDERED: OXYCODONE-ACETAMINOPHEN 5-325 MG TABLET PO ONE (23:29)
--- NOTE | 2017-02-28 23:33 | ER Document Report ---
ED General - General Chief Complaint: Fall Stated Complaint: FALL Time Seen by Provider: 02/28/17 21:23 Notes: Patient is a 36-year-old female presents with complaint of left knee pain. Patient had surgery just under a month ago. She had a tibial fracture. She has screws and plate in place. She said that she fell and wants to make sure that she reinjured her knee. She says that she has had continuous swelling since the surgery. She says is all better if she raises her leg are elevated. Does admit she has some pain into her calf but says her leg is been like this since the surgery. No fevers. No other complaints at this time. TRAVEL OUTSIDE OF THE [place] IN LAST 30 DAYS: No - Related Data Allergies/Adverse Reactions: No Known Allergies Allergy (Verified 02/01/17 15:07) Past Medical History - Social History Smoking Status: Never Smoker Frequency of alcohol use: None Drug Abuse: None Family History: Arthritis, CAD, COPD, CVA, DM, Hyperlipidemia, Hypertension, Malignancy Patient has suicidal ideation: No Patient has homicidal ideation: No - Past Medical History Cardiac Medical History: Reports: Hx Hypertension Pulmonary Medical History: Reports: Hx COPD Renal/ Medical History: Denies: Hx Peritoneal Dialysis Skin Medical History: Reports Hx MRSA Psychiatric Medical History: Reports: Hx Anxiety, Hx Attention Deficit Hyperactivity Disorder Past Surgical History: Reports: Hx Adenoidectomy, Hx Section, Hx Cholecystectomy, Hx Tonsillectomy - Immunizations Hx Diphtheria, Pertussis, Tetanus Vaccination: Yes Review of Systems - Review of Systems Notes: My Normal Review Basic REVIEW OF SYSTEMS: CONSTITUTIONAL : Denies fever, chills, or sweats. Denies recent illness. MUSCULOSKELETAL: Left knee pain. SKIN: Denies rash or skin lesions. NEUROLOGICAL: Denies sensory or motor loss. ALL OTHER SYSTEMS REVIEWED AND NEGATIVE. Physical Exam - Vital signs Vitals: Temp Pulse Resp BP Pulse Ox 98.6 F 110 H 16 132/91 H 98 02/28/17 19:34 02/28/17 19:34 02/28/17 19:34 02/28/17 19:34 02/28/17 19:34 - Notes Notes: General Appearance: Well nourished, alert, cooperative, no acute distress, no obvious discomfort. Vitals: reviewed, See vital signs table. Extremities: strength 5/5 in all extremities, good pulses in all extremities, patient has clean surgical incision site appears to be healing well. No significant erythema. Normal warmth. No signs of infection. No foul smell drainage. Patient does have swelling to the left leg as expected postsurgery. She does have some pedal edema. She does have some pain to palpation of the knee itself which is to be expected being that she just recently had a major surgery. Mild pain to palpation of the calf as well., no edema. Pulses and distal sensation are intact in the left leg. Skin: warm, dry, appropriate color, no rash Neuro: speech clear, oriented x 3, normal affect, responds appropriately to questions. Course - Re-evaluation Re-evalutation: 03/01/17 07:45 I suspect that the patient swelling is related to her recent surgery being that it her swelling has been steady since the surgery. Her x-ray shows no evidence of displacement or hardware fractures. Patient was asking for pain medication. Prescription database shows that she did have some Percocet. I did ask about this. She says that her son accidentally threw her Percocet the toilet. Informed her that it is against our hospital's policy to refill lost or stolen prescriptions for narcotics. I told her I would give her 1 dose of narcotic pain medicine here. Patient was found that just requested 100 mg Motrin for home. I will write her prescription for this. I am her to return to ER if she has redness, swelling, or any signs of infection. Wrote a prescription to have a venous tube Doppler done of her leg. Informed I think it is less likely she has a clot however she is a high risk for this and therefore we will get a venous Doppler. Patient agrees to have this test performed. She to follow-up closely with orthopedic surgeon. Dictation of this chart was performed using voice recognition software; therefore, there may be some unintended grammatical errors. - Vital Signs Vital signs: Temp Pulse Resp BP Pulse Ox 98.3 F 99 18 141/97 H 98 02/28/17 23:44 02/28/17 23:44 02/28/17 23:44 02/28/17 23:44 02/28/17 23:44 Discharge - Discharge Condition: Good Disposition: HOME, SELF-CARE Additional Instructions: Your xrays show no fracture. You do have some swelling which is most likely related to your suregery; however, you are at risk for a blood clot in your leg. I have therefore written a prescription to have the ultrasound performed. Please call the number on the prescription and have the ultrasound obtained to rule out the clot. Follow up with your orthopedist in 2-3 days for reevaluation. Prescriptions: Ibuprofen [Motrin 800 mg Tablet] 800 mg PO Q8H PRN #20 tab PRN Reason: Forms: Follow-Up Outpatient Testing Referrals: GIULIANA LOAIZA MD [Primary Care Provider] - Follow up in 3-5 days
[2017-02-28 23:52] VITALS: BP 141/97
== END 2017-03-01 00:20 | disposition home or self-care (01) ==
LOC: ER 19:22
DX: M25.562 Pain in left knee (principal); G89.29 Other chronic pain; W19.XXXA Unspecified fall, initial encounter; Z98.890 Other specified postprocedural states
CPT/HCPCS: 99283; 73562; 73590; S0119

== ENCOUNTER 2018-07-18 14:49 | Emergency (ER) | payer SELFPAY ==
[2018-07-18] MEDS ORDERED: HYDROCODONE/ACETAMINOPHEN 5-325 MG TABLET PO ONE ×2 (16:52→18:56)
--- NOTE | 2018-07-18 16:56 | ER Document Report ---
ED Extremity Problem, Lower - General Chief Complaint: Leg Injury Stated Complaint: LEG INJURY Time Seen by Provider: 07/18/18 16:42 Primary Care Provider: GIULIANA LOAIZA MD [Primary Care Provider] - Follow up as needed Mode of Arrival: Ambulatory Information source: Patient Notes: 37-year-old female presents emergency department with complaints of right calf pain. Patient states that she fell through rotted floor 1 week ago. There was an abrasion to the right calf. She states that she went to a [email or web address] drug store and bought amoxicillin. She states that she has been taking this antibiotic for the last 5 days but is been having fever, chills, decreased appetite. Patient is unsure of her tetanus is up-to-date. She does have a history of MRSA. Patient is refusing any admission to the hospital. Patient states that she is only here for a different antibiotic. TRAVEL OUTSIDE OF THE [place] IN LAST 30 DAYS: No - HPI Patient complains to provider of: Injury, Pain, Swelling Occurred: Last week Where: Home Onset/Duration: Sudden Quality of pain: Achy Severity: Mild Recent injury: Yes Exacerbated by: Nothing Relieved by: Nothing - Related Data Allergies/Adverse Reactions: No Known Allergies Allergy (Verified 02/01/17 15:07) Past Medical History - General Information source: Patient - Social History Smoking Status: Current Every Day Smoker Chew tobacco use (# tins/day): No Frequency of alcohol use: None Drug Abuse: None Family History: Arthritis, CAD, COPD, CVA, DM, Hyperlipidemia, Hypertension, Malignancy Patient has suicidal ideation: No Patient has homicidal ideation: No - Past Medical History Cardiac Medical History: Reports: Hx Hypertension Pulmonary Medical History: Reports: Hx COPD Renal/ Medical History: Denies: Hx Peritoneal Dialysis Skin Medical History: Reports Hx MRSA Psychiatric Medical History: Reports: Hx Anxiety, Hx Attention Deficit Hyperactivity Disorder, Hx Bipolar Disorder, Hx Depression Past Surgical History: Reports: Hx Adenoidectomy, Hx Section, Hx Cholecystectomy, Hx Oral Surgery, Hx Orthopedic Surgery - LEFT LOWER EXTREMITY, Hx Tonsillectomy - Immunizations Hx Diphtheria, Pertussis, Tetanus Vaccination: Yes Review of Systems - Review of Systems Constitutional: Chills, Fever, Malaise EENT: No symptoms reported Cardiovascular: No symptoms reported Respiratory: No symptoms reported Gastrointestinal: No symptoms reported Genitourinary: No symptoms reported Female Genitourinary: No symptoms reported Musculoskeletal: Muscle pain Skin: Lesions Hematologic/Lymphatic: No symptoms reported Neurological/Psychological: No symptoms reported -: Yes All other systems reviewed and negative Physical Exam - Notes Notes: PHYSICAL EXAMINATION: GENERAL: Well-appearing, well-nourished and in no acute distress. HEAD: Atraumatic, normocephalic. EYES: Pupils equal round and reactive to light, extraocular movements intact, conjunctiva are normal. ENT: Nares patent, oropharynx clear without exudates. Moist mucous membranes. NECK: Normal range of motion, supple without lymphadenopathy LUNGS: Breath sounds clear to auscultation bilaterally and equal. No wheezes rales or rhonchi. HEART: Regular rate and rhythm without murmurs Female : deferred Musculoskeletal: Right calf cellulitis and infected abrasion. Right calf tenderness to palpation. 2+ DP/PT pulses. NEUROLOGICAL: Cranial nerves grossly intact. Normal speech, normal gait. Normal sensory, motor exams PSYCH: Normal mood, normal affect. SKIN: Softball size area of erythema to the right calf. Course - Re-evaluation Re-evalutation: 07/18/18 18:43 Venous Dopplers negative. I will start the patient on Bactrim. Instructed the patient to take the medication prescribed as directed, to follow-up with her primary care physician this week, and to return for any worsening symptoms. The cellulitic area was outlined. I told the patient that if the erythema is spreading, she's having fever, chills, she needs to come back to the emergency department for admission. 07/18/18 18:47 Discharge - Discharge Clinical Impression: Cellulitis of leg, right Condition: Good Disposition: HOME, SELF-CARE Instructions: Cellulitis ([facility]) Prescriptions: Sulfamethoxazole/Trimethoprim [Bactrim Ds Tablet] 1 each PO BID #14 tablet Referrals: GIULIANA LOAIZA MD [Primary Care Provider] - Follow up as needed
--- NOTE | 2018-07-18 18:43 | RADIOLOGY REPORT (SQ) ---
EXAM DESCRIPTION: VENOUS UNILATERAL LOWER COMPLETED DATE/TIME: 07/18/2018 6:37 pm REASON FOR STUDY: right leg pain COMPARISON: None. TECHNIQUE: Dynamic and static garces scale and color images acquired of the right leg venous system. S elected spectral images acquired with additional compression and augmentation maneuvers. The contrala teral common femoral vein and saphenofemoral junction were also imaged. Images stored on PACS. LIMITATIONS: None. FINDINGS: COMMON FEMORAL: Normal phasicity, compression and augmentation. No visualized echogenic ma terial on garces scale. No defects on color images. FEMORAL: Normal compression and augmentation. No visualized echogenic material on garces scale. No defe cts on color images. POPLITEAL: Normal compression, augmentation. No visualized echogenic material on garces scale. No defec ts on color images. CALF VESSELS: Normal compression, augmentation. No visualized echogenic material on garces scale. No de fects on color images. GSV and SSV: Normal compression, augmentation. No visualized echogenic material on garces scale. No def ects on color images. ANY DEEP VENOUS INSUFFICIENCY: Not evaluated. ANY EVIDENCE OF POPLITEAL CYST: No. OTHER: No other significant finding. CONTRALATERAL COMMON FEMORAL VEIN AND SAPHENOFEMORAL JUNCTION: Normal phasicity, compression and augmentation. No visualized echogenic material on garces scale. No de fects on color images. IMPRESSION: NO EVIDENCE DVT OR SVT IN THE RIGHT LEG. TECHNICAL DOCUMENTATION: JOB ID: [id number] [employer]- All Rights Reserved Reading location - IP/workstation name: [email or web address]
[2018-07-18 18:51] VITALS: BP 151/105
== END 2018-07-18 18:51 | disposition home or self-care (01) ==
LOC: ER 14:49
DX: L03.115 Cellulitis of right lower limb (principal); F17.200 Nicotine dependence, unspecified, uncomplicated; I10 Essential (primary) hypertension; R53.81 Other malaise; R50.9 Fever, unspecified; Z90.49 Acquired absence of other specified parts of digestive tract; Z86.14 Personal history of Methicillin resistant Staphylococcus aureus infection
CPT/HCPCS: 93971; 99283